=== PATIENT | male | born 1935 | race African-American/Black ===

== ENCOUNTER 2018-04-26 16:48 | Inpatient (IN) | payer OTHER ==
[~2018-04-26] VITALS: Ht 180.3 cm; Wt 71.0 kg
[2018-04-26] MEDS ORDERED: SODIUM CHLORIDE 0.9% 1000ML BAG (SEPSIS BOLUS) IV ONE ×2 (17:15→22:15)
[2018-04-26] MEDS ORDERED: PIPERACILLIN SODIUM/TAZOBACTAM 4.5 G in DEXT 5% WATER 100 ML IV SCH (17:30)
[2018-04-26] MEDS ORDERED: VANCOMYCIN 1 G PREMIX 200 ML IV SCH (17:30)
[2018-04-26] MEDS ORDERED: AZITHROMYCIN 500 MG in DEXT 5% WATER 250 ML IV SCH (18:00)
[2018-04-26] MEDS ORDERED: CEFTRIAXONE 1 G PREMIX 50 ML IV ONE (18:00)
[2018-04-26 18:38] LABS: BASOPHILS % 1.1 % (0.0-2.0); HEMATOCRIT. 32.4 % (42.0-52.0); HEMOGLOBIN. 10.1 g/dL (14.0-18.0); LYMPHOCYTES % 25.8 % (20.0-50.0); MEAN CORPUSCULAR HEMOGLOBIN 25.4 pg (28.0-32.0); MEAN CORPUSCULAR VOLUME 81.3 fL (80.0-94.0); MEAN PLATELET VOLUME 10.5 fl (7.4-10.4); MONOCYTES % 4.1 % (2.0-8.0); PLATELET 200 x1000/uL (130-400); RED BLOOD CELL COUNT 3.98 mill/uL (4.7-6.1); RED CELL DISTRIBUTION WIDTH 22.7 % (11.6-14.6)
[2018-04-26 18:39] LABS: PROTHROMBIN TIME 9.8 sec (9.1-11.1)
[2018-04-26 18:42] LABS: CHLORIDE 134 mEq/L (98-107)
[2018-04-26 19:21] LABS: PLATELET ESTIMATE NORMAL
[2018-04-26 22:08] LABS: CLARITY URINE CLOUDY (CLEAR); COLOR URINE DARK YELLOW (YELLOW); KETONES URINE TRACE (NEGATIVE); LEUKOCYTE ESTERASE URINE NEGATIVE (NEGATIVE); NITRITE URINE NEGATIVE (NEGATIVE); OCCULT BLOOD URINE 2+ (NEGATIVE); PROTEIN URINE 4+ (NEGATIVE); SPECIFIC GRAVITY URINE 1.025 (1.005-1.030); UROBILINOGEN URINE 0.2 E.U./dL (0.2-1.0)
[2018-04-26] MEDS ORDERED: DEXTROSE 50% WATER 50ML SYRINGE IV ONE ×2 (22:45)
[2018-04-26] MEDS ORDERED: INSULIN REGULAR (HUMULIN R) UD 100 UNITS/ML SYR IV ONE (22:45)
[2018-04-26] MEDS ORDERED: ENOXAPARIN 40MG/0.4ML SYR SUBCUT SCH (23:00)
[2018-04-26] MEDS ORDERED: MAGNESIUM/ALUMINUM HYDROXIDE/SIMETHICONE 30ML UDC PO PRN (23:00)
[2018-04-26] MEDS ORDERED: GUAIFENESIN 200MG/10ML SUGAR FREE UDC PO PRN (23:00)
[2018-04-26] MEDS ORDERED: CLONIDINE 0.1MG TABLET PO PRN (23:00)
[2018-04-26] MEDS ORDERED: DOCUSATE SODIUM 100MG CAPSULE PO PRN (23:00)
[2018-04-26] MEDS ORDERED: IPRATROPIUM/ALBUTEROL 0.5-3(2.5)MG/3ML NEB INH PRN (23:00)
[2018-04-26] MEDS ORDERED: INSULIN REGULAR (HUMULIN R) 300UNITS/3ML IV ONE (23:15)
[2018-04-27] VITALS (89 sets, daily range): BP systolic 82–162; BP diastolic 37–92
[2018-04-27] MEDS ORDERED: HYDROMORPHONE HCL/PF 2MG/ML CPJ IV PRN (02:47)
[2018-04-27] MEDS ORDERED: SODIUM CHLORIDE 0.9% 1,000 ML IV SCH (02:48)
[2018-04-27 04:38] LABS: HEMATOCRIT. 32.6 % (42.0-52.0); HEMOGLOBIN. 10.2 g/dL (14.0-18.0); MEAN CORPUSCULAR HEMOGLOBIN 25.4 pg (28.0-32.0); MEAN CORPUSCULAR VOLUME 81.3 fL (80.0-94.0); RED BLOOD CELL COUNT 4.01 mill/uL (4.7-6.1); RED CELL DISTRIBUTION WIDTH 22.7 % (11.6-14.6)
[2018-04-27] MEDS ORDERED: CEFTRIAXONE 1 G PREMIX 50 ML IV ONE (05:00)
[2018-04-27 05:01] LABS: PHOSPHORUS 5.4 mg/dL (2.5-4.9)
[2018-04-27 05:04] LABS: CREATINE KINASE MB FRACTION 6.3 ng/mL (0.5-3.6)
[2018-04-27] MEDS ORDERED: DEXTROSE 5% WATER 1,000 ML IV SCH (06:00)
[2018-04-27] MEDS ORDERED: DEXTROSE 50% WATER 50ML SYRINGE IV NR (06:00)
[2018-04-27] MEDS ORDERED: INSULIN REGULAR (HUMULIN R) 300UNITS/3ML SUBCUT NR (06:00)
[2018-04-27] MEDS ORDERED: SODIUM POLYSTYRENE SULFONATE 15 G/60 ML BOT PO NR (06:00)
[2018-04-27] MEDS: ENOXAPARIN 30MG/0.3ML SYR SUBCUT SCH (08:20)
[2018-04-27 08:26] LABS: NUCLEATED RED BLOOD CELLS 1 /100 WBC
[2018-04-27 08:28] LABS: PLATELET ESTIMATE NORMAL
[2018-04-27 08:30] LABS: PLATELET 164 x1000/uL (130-400)
[2018-04-27 09:21] LABS: BG BASE EXCESS -8.9 mmol/L (-2.0-2.0); BG CARBOXYHEMOGLOBIN 0.3 % (0.5-1.5); BG DEOXYHEMOGLOBIN 5.6 % (0.0-5.0); BG FRACTION INSPIRED OXYGEN 32; BG HCO3 ACT 15.7 mmol/L (22.0-26.0); BG METHEMOGLOBIN 0.3 % (0.0-1.5); BG OXYGEN SATURATION 94.4 % (92.0-98.5); BG OXYHEMOGLOBIN 93.8 % (94.0-97.0); BG PH 7.338 (7.350-7.450); BG PO2 89.3 mmHg (75.0-100.0); BG SAMPLE SITE RIGHT RADIAL; BG TOTAL HEMOGLOBIN 10.8 g/dL (12.0-18.0); BG VENT MODE NASAL CANNULA
[2018-04-27] MEDS ORDERED: LIDOCAINE HCL 1% 20ML VIAL (Pyxis) INJ ONE (09:38)
[2018-04-27] MEDS ORDERED: SODIUM BICARBONATE 4% (2.4MEQ) 5ML VIAL IV ONE (09:38)
[2018-04-27] MEDS ORDERED: HEPARIN SODIUM 1,000 UNIT/1ML VIAL IV NR (12:15)
[2018-04-27] MEDS ORDERED: NOREPINEPHRINE 16 MG in DEXT 5% WATER 234 ML IV PRN (12:30)
[2018-04-27 12:49] LABS: PROTHROMBIN TIME 9.7 sec (9.1-11.1)
[2018-04-27] MEDS ORDERED: SODIUM CHLORIDE 10% FOR INH 15ML VIAL NEB INH NR (13:00)
[2018-04-27] MEDS: IPRATROPIUM/ALBUTEROL 0.5-3(2.5)MG/3ML NEB HHN SCH ×2 (14:05→20:48)
[2018-04-27 17:08] LABS: CREATINE KINASE 332 IU/L (39-308)
[2018-04-27 17:09] LABS: CREATINE KINASE MB FRACTION 6.2 ng/mL (0.5-3.6)
[2018-04-27] MEDS ORDERED: AZITHROMYCIN 500 MG in DEXT 5% WATER 250 ML IV SCH (18:00)
[2018-04-27] MEDS: CEFTRIAXONE 1 G PREMIX 50 ML IV SCH (19:03)
[2018-04-27] MEDS: AZITHROMYCIN 500 MG in DEXT 5% WATER 250 ML IV SCH (19:04)
[2018-04-27] MEDS: DEXTROSE 5% WATER 1,000 ML IV SCH (23:00)
[2018-04-27 23:26] LABS: PHOSPHORUS 4.1 mg/dL (2.5-4.9)
[2018-04-28] VITALS (20 sets, daily range): BP systolic 106–148; BP diastolic 58–88
[2018-04-28] MEDS: IPRATROPIUM/ALBUTEROL 0.5-3(2.5)MG/3ML NEB HHN SCH ×4 (00:33→21:36)
[2018-04-28 07:40] LABS: BASOPHILS % 0.5 % (0.0-2.0); HEMATOCRIT. 32.6 % (42.0-52.0); HEMOGLOBIN. 10.4 g/dL (14.0-18.0); LYMPHOCYTES % 28.1 % (20.0-50.0); MEAN CORPUSCULAR HEMOGLOBIN 25.7 pg (28.0-32.0); MEAN CORPUSCULAR VOLUME 80.3 fL (80.0-94.0); MEAN PLATELET VOLUME 10.2 fl (7.4-10.4); MONOCYTES % 5.5 % (2.0-8.0); NEUTROPHILS % 62.9 % (40.0-76.0); PLATELET 139 x1000/uL (130-400); RED BLOOD CELL COUNT 4.06 mill/uL (4.7-6.1); RED CELL DISTRIBUTION WIDTH 22.4 % (11.6-14.6)
[2018-04-28] MEDS: ENOXAPARIN 30MG/0.3ML SYR SUBCUT SCH (08:50)
[2018-04-28] MEDS ORDERED: FURO-151 MT (08:59)
[2018-04-28] MEDS ORDERED: POTA20TA82 MT (09:00)
[2018-04-28] MEDS ORDERED: LOSA100T14 MT (09:01)
[2018-04-28] MEDS ORDERED: ASPI-1159 MT (09:02)
[2018-04-28] MEDS ORDERED: ATOR20TA MT (09:02)
[2018-04-28 10:31] LABS: BG BASE EXCESS -3.4 mmol/L (-2.0-2.0); BG CARBOXYHEMOGLOBIN 0.1 % (0.5-1.5); BG DEOXYHEMOGLOBIN 5.6 % (0.0-5.0); BG FRACTION INSPIRED OXYGEN 28; BG METHEMOGLOBIN 0.3 % (0.0-1.5); BG OXYGEN SATURATION 94.4 % (92.0-98.5); BG PCO2 35.9 mmHg (35.0-45.0); BG PH 7.386 (7.350-7.450); BG PO2 84.8 mmHg (75.0-100.0); BG SAMPLE SITE RIGHT RADIAL; BG TOTAL HEMOGLOBIN 11.6 g/dL (12.0-18.0); BG VENT MODE NASAL CANNULA
[2018-04-28] MEDS ORDERED: PNEUMOCOCCAL 23-VAL P-SAC VAC 0.5 ML IM ONE (11:00)
[2018-04-28] MEDS ORDERED: HYDR25TA PO (12:25)
[2018-04-28] MEDS ORDERED: AMLO10TA80 PO (12:25)
[2018-04-28] MEDS ORDERED: LIDOCAINE HCL/PF 1% 2ML VIAL ONE (15:11)
[2018-04-28] MEDS: CEFTRIAXONE 1 G PREMIX 50 ML IV SCH (18:05)
[2018-04-28] MEDS: AZITHROMYCIN 500 MG in DEXT 5% WATER 250 ML IV SCH (18:47)
[2018-04-28] MEDS: DEXTROSE 5% WATER 1,000 ML IV SCH (20:15)
[2018-04-29] VITALS (12 sets, daily range): BP systolic 127–152; BP diastolic 49–109
[2018-04-29] MEDS: IPRATROPIUM/ALBUTEROL 0.5-3(2.5)MG/3ML NEB HHN SCH ×4 (02:03→20:47)
[2018-04-29 07:16] LABS: HEMATOCRIT. 31.9 % (42.0-52.0); HEMOGLOBIN. 10.3 g/dL (14.0-18.0); MEAN CORPUSCULAR VOLUME 80.7 fL (80.0-94.0); MEAN PLATELET VOLUME 9.3 fl (7.4-10.4); PLATELET 113 x1000/uL (130-400); RED BLOOD CELL COUNT 3.95 mill/uL (4.7-6.1); RED CELL DISTRIBUTION WIDTH 21.8 % (11.6-14.6)
[2018-04-29 07:17] LABS: PARTIAL THROMBOPLASTIN TIME 41.1 sec (23.4-31.0); PROTHROMBIN TIME 9.7 sec (9.1-11.1)
[2018-04-29 07:25] LABS: PHOSPHORUS 5.9 mg/dL (2.5-4.9)
[2018-04-29] MEDS ORDERED: LIDOCAINE HCL 1% 20ML VIAL (Pyxis) INJ ONE (08:06)
[2018-04-29] MEDS ORDERED: HEPARIN 1000 UNITS/ML 10ML ONE (08:07)
[2018-04-29] MEDS: ENOXAPARIN 30MG/0.3ML SYR SUBCUT SCH (08:38)
[2018-04-29 17:25] LABS: HEPATITIS A AB IGM NEGATIVE (NEGATIVE)
[2018-04-29 18:18] LABS: HEPATITIS B SURFACE ANTIGEN NEGATIVE
[2018-04-29] MEDS: METRONIDAZOLE 500 MG PREMIX 100 ML IV SCH (18:52)
[2018-04-29 23:00] LABS: PLATELET ESTIMATE SLIGHTLY DECREASED
[2018-04-30] VITALS (11 sets, daily range): BP systolic 128–148; BP diastolic 66–95
[2018-04-30] MEDS: IPRATROPIUM/ALBUTEROL 0.5-3(2.5)MG/3ML NEB HHN SCH ×5 (02:05→20:18)
[2018-04-30] MEDS: METRONIDAZOLE 500 MG PREMIX 100 ML IV SCH ×2 (07:47→14:04)
[2018-04-30] MEDS: DEXTROSE 5% WATER 1,000 ML IV SCH ×3 (08:35→20:50)
[2018-04-30] MEDS: ENOXAPARIN 30MG/0.3ML SYR SUBCUT SCH (08:35)
[2018-04-30] MEDS: CEFEPIME 1,000 MG in DEXTROSE 5% WATER 50 ML IV SCH (13:59)
[2018-04-30] MEDS: ACETYLCYSTEINE 100MG/ML 10% VIAL 4ML INH SCH (16:28)
[2018-05-01] VITALS (12 sets, daily range): BP systolic 120–150; BP diastolic 56–79
[2018-05-01] MEDS: IPRATROPIUM/ALBUTEROL 0.5-3(2.5)MG/3ML NEB HHN SCH ×6 (01:30→20:45)
[2018-05-01] MEDS: ACETYLCYSTEINE 100MG/ML 10% VIAL 4ML INH SCH ×3 (01:30→15:59)
[2018-05-01] MEDS: METRONIDAZOLE 500 MG PREMIX 100 ML IV SCH ×2 (06:08→17:06)
[2018-05-01] MEDS: ENOXAPARIN 30MG/0.3ML SYR SUBCUT SCH (09:00)
[2018-05-01 11:36] LABS: HEMOGLOBIN. 9.6 g/dL (14.0-18.0); MEAN CORPUSCULAR HEMOGLOBIN 26.1 pg (28.0-32.0); MEAN CORPUSCULAR VOLUME 79.1 fL (80.0-94.0); RED BLOOD CELL COUNT 3.67 mill/uL (4.7-6.1); RED CELL DISTRIBUTION WIDTH 21.1 % (11.6-14.6)
[2018-05-01 12:02] LABS: PLATELET 69 x1000/uL (130-400)
[2018-05-01 12:05] LABS: PLATELET ESTIMATE DECREASED
[2018-05-01] MEDS ORDERED: METRONIDAZOLE 500 MG PREMIX 100 ML IV SCH (13:00)
[2018-05-01] MEDS: CEFEPIME 1,000 MG in DEXTROSE 5% WATER 50 ML IV SCH (14:01)
[2018-05-01] MEDS: DEXTROSE 5% WATER 1,000 ML IV SCH (16:30)
[2018-05-02] VITALS (23 sets, daily range): BP systolic 129–165; BP diastolic 68–93
[2018-05-02] MEDS: IPRATROPIUM/ALBUTEROL 0.5-3(2.5)MG/3ML NEB HHN SCH ×6 (02:52→19:55)
[2018-05-02] MEDS: METRONIDAZOLE 500 MG PREMIX 100 ML IV SCH ×2 (05:32→18:28)
[2018-05-02] MEDS: ACETYLCYSTEINE 100MG/ML 10% VIAL 4ML INH SCH ×3 (05:55→16:33)
[2018-05-02] MEDS: CALCITRIOL 0.25MCG CAPSULE PO SCH (09:00)
[2018-05-02] MEDS ORDERED: HEPARIN 1000 UNITS/ML 10ML ONE (09:01)
[2018-05-02] MEDS ORDERED: FENTANYL CITRATE/PF 50MCG/ML 2ML VIAL ONE (10:40)
[2018-05-02] MEDS ORDERED: FENTANYL CITRATE/PF 50MCG/ML 2ML VIAL IV NR (11:00)
[2018-05-02] MEDS ORDERED: SODIUM BICARBONATE 4% (2.4MEQ) 5ML VIAL IV ONE (13:13)
[2018-05-02] MEDS ORDERED: LIDOCAINE HCL 1% 20ML VIAL (Pyxis) INJ ONE (13:13)
[2018-05-02] MEDS: CEFEPIME 1,000 MG in DEXTROSE 5% WATER 50 ML IV SCH (14:58)
[2018-05-02] MEDS: DEXTROSE 5% WATER 1,000 ML IV SCH (18:34)
[2018-05-03] VITALS (7 sets, daily range): BP systolic 129–161; BP diastolic 63–90
[2018-05-03] MEDS: IPRATROPIUM/ALBUTEROL 0.5-3(2.5)MG/3ML NEB HHN SCH ×6 (00:05→21:14)
[2018-05-03] MEDS: ACETYLCYSTEINE 100MG/ML 10% VIAL 4ML INH SCH ×4 (00:08→15:55)
[2018-05-03] MEDS: METRONIDAZOLE 500 MG PREMIX 100 ML IV SCH (06:00)
[2018-05-03] MEDS: CALCITRIOL 0.25MCG CAPSULE PO SCH (09:00)
[2018-05-03 09:53] LABS: HEMATOCRIT. 28.2 % (42.0-52.0); HEMOGLOBIN. 9.2 g/dL (14.0-18.0); MEAN CORPUSCULAR HEMOGLOBIN 25.8 pg (28.0-32.0); MEAN CORPUSCULAR VOLUME 79.7 fL (80.0-94.0); RED BLOOD CELL COUNT 3.54 mill/uL (4.7-6.1); RED CELL DISTRIBUTION WIDTH 20.8 % (11.6-14.6)
[2018-05-03 11:08] LABS: PLATELET ESTIMATE MARKEDLY DECREASED
[2018-05-03 11:09] LABS: MEAN PLATELET VOLUME 8.9 fl (7.4-10.4); PLATELET 54 x1000/uL (130-400)
[2018-05-04] VITALS: BP 154/79
[2018-05-04 02:00] VITALS: BP 108/38
[2018-05-04] MEDS: IPRATROPIUM/ALBUTEROL 0.5-3(2.5)MG/3ML NEB HHN SCH ×2 (03:38→08:15)
[2018-05-04 04:00] VITALS: BP 140/72
[2018-05-04 06:00] VITALS: BP 138/71
[2018-05-04 08:00] VITALS: BP 150/82
[2018-05-04 08:19] LABS: HEMATOCRIT. 26.6 % (42.0-52.0); HEMOGLOBIN. 8.8 g/dL (14.0-18.0); MEAN CORPUSCULAR HEMOGLOBIN 26.2 pg (28.0-32.0); MEAN CORPUSCULAR VOLUME 78.8 fL (80.0-94.0); RED BLOOD CELL COUNT 3.37 mill/uL (4.7-6.1); RED CELL DISTRIBUTION WIDTH 20.1 % (11.6-14.6)
[2018-05-04] MEDS: CALCITRIOL 0.25MCG CAPSULE PO SCH (09:00)
[2018-05-04 09:17] LABS: PLATELET 55 x1000/uL (130-400)
[2018-05-04 09:19] LABS: PLATELET ESTIMATE MARKEDLY DECREASED
[2018-05-04 10:03] VITALS: BP 118/88
[2018-05-09 10:08] LABS: A/G RATIO 0.4 (0.7-1.7); ALBUMIN 1.2 g/dL (2.9-4.4); ALPHA-1-GLOBULIN 0.4 g/dL (0.0-0.4); ALPHA-2-GLOBULIN 0.9 g/dL (0.4-1.0); BETA GLOBULIN 0.7 g/dL (0.7-1.3); M-SPIKE 0.1 g/dL (Not Observed); TOTAL PROTEIN SERUM 4.2 g/dL (6.0-8.5)
== END 2018-05-04 12:53 | DRG 871 ==
LOC: ER 18:14 → MICUSO 22:18 → EDBEDREQSVC 22:22 → EDBEDREQ 22:22 → EDBEDREQTM 22:22 → ENRESERV 22:40 → 3WST 04-28 02:30
PROVIDERS: ADMIT Internal Medicine Nephrology; ATTEND Internal Medicine Nephrology
PROC: 05HY33Z Insertion of Infusion Device into Upper Vein, Percutaneous Approach (ICD-10-PCS; 2018-04-27)
PROC: B54NZZA Ultrasonography of Left Upper Extremity Veins, Guidance (ICD-10-PCS; 2018-04-27)
PROC: 05HY33Z Insertion of Infusion Device into Upper Vein, Percutaneous Approach (ICD-10-PCS; 2018-04-29)
PROC: B54MZZA Ultrasonography of Right Upper Extremity Veins, Guidance (ICD-10-PCS; 2018-04-29)
PROC: 5A1D70Z Performance of Urinary Filtration, Intermittent, Less than 6 Hours Per Day (ICD-10-PCS; 2018-04-29)
PROC: 5A1D70Z Performance of Urinary Filtration, Intermittent, Less than 6 Hours Per Day (ICD-10-PCS; 2018-05-01)
PROC: 02H633Z Insertion of Infusion Device into Right Atrium, Percutaneous Approach (ICD-10-PCS; principal; 2018-05-02)
PROC: B2141ZZ Fluoroscopy of Right Heart using Low Osmolar Contrast (ICD-10-PCS; 2018-05-02)
PROC: 0JH63XZ Insertion of Tunneled Vascular Access Device into Chest Subcutaneous Tissue and Fascia, Percutaneous Approach (ICD-10-PCS; 2018-05-02)
PROC: 5A1D70Z Performance of Urinary Filtration, Intermittent, Less than 6 Hours Per Day (ICD-10-PCS; 2018-05-03)
DX: A41.9 Sepsis, unspecified organism (principal); R65.21 Severe sepsis with septic shock; E43 Unspecified severe protein-calorie malnutrition; J69.0 Pneumonitis due to inhalation of food and vomit; N18.6 End stage renal disease; J96.00 Acute respiratory failure, unspecified whether with hypoxia or hypercapnia; E87.0 Hyperosmolality and hypernatremia; M62.82 Rhabdomyolysis; I12.0 Hypertensive chronic kidney disease with stage 5 chronic kidney disease or end stage renal disease; N17.9 Acute kidney failure, unspecified; N25.81 Secondary hyperparathyroidism of renal origin; D63.8 Anemia in other chronic diseases classified elsewhere; E87.8 Other disorders of electrolyte and fluid balance, not elsewhere classified; E87.5 Hyperkalemia; R47.02 Dysphasia; E87.6 Hypokalemia; F03.90 Unspecified dementia, unspecified severity, without behavioral disturbance, psychotic disturbance, mood disturbance, and anxiety; I95.9 Hypotension, unspecified; Z85.528 Personal history of other malignant neoplasm of kidney; Z86.73 Personal history of transient ischemic attack (TIA), and cerebral infarction without residual deficits; Z90.5 Acquired absence of kidney; Z99.2 Dependence on renal dialysis; Z68.21 Body mass index [BMI] 21.0-21.9, adult
CPT/HCPCS: 36415; 36556; 36558; 36589; 36600; 71045; 76770; 76937; 77001; 80048; 82375; 82550; 82553; 82805; 82962; 83036; 83605; 83735; 83970; 84100; 84145; 84153; 84155; 84165; 84439; 84443; 84484; 86705; 86709; 86803; 87340; 90732; 92610; 93005; 94640; 96365; 96366; 96368; 96375; 97162; 97530; 99291; A6261; C1752; C1769; J0456; J0692; J0696; J1642; J1644; J1650; J1815; J2543; J3010; J3370; J3490; J7030; J7050; J7060; J7070; J7131; J7608; J7620; G0103